=== PATIENT | female | born 1960 | race Caucasian/White ===

== ENCOUNTER 2019-07-09 07:28 | Day surgery (SDC) | payer BC ==
[~2019-07-09 07:28] MED LIST: ALBU90OI61 INH; ASCO500 PO; BIEST/PROGEST TP; BUPR150T2 PO; CALMAGZIN PO; CELE200 PO; CYAN1000I IM; DHEA PO; DIAZ10 PO; DIAZ2 PO; GABA300 PO; METH10 PO; METO25ER PO; MIRT15 PO; MULVITMIND PO; PROM25 PO; RANI150 PO; RISE35 PO; SERT100 PO; TEMA30 PO; VIT D
== END 2019-07-09 23:36 | disposition home or self-care (01) ==
LOC: MOI US 07:28
DX: N60.92 Unspecified benign mammary dysplasia of left breast (principal)
CPT/HCPCS: 19083; 77065; A4648

== ENCOUNTER 2019-07-23 07:23 | Day surgery (SDC) | payer BC ==
[2019-07-23 10:12] LABS: Percent Saturation 30.6 % (15.0-50.0)
[2019-07-23 10:23] LABS: Anion Gap 4 mmol/L (6-16); Blood Urea Nitrogen 5 mg/dL (8-24); CO2, Blood 27 mmol/L (21-32); Calcium, Blood 8.4 mg/dL (8.5-10.1); Chloride, Blood 106 mmol/L (98-108); Creatinine, Blood 0.56 mg/dL (0.40-1.00); Glomerular Filtration Rate >60 (60-); Glucose, Blood 93 mg/dL (70-99); Potassium, Blood 3.7 mmol/L (3.5-5.5); Sodium, Blood 137 mmol/L (136-145)
[2019-07-23 10:39] LABS: Hematocrit 42.9 % (33.0-51.0); Mean Corpuscular HGB 34.2 pg (26.0-34.0); Mean Corpuscular HGB Conc 34.7 g/dL (31.5-36.5); Mean Corpuscular Volume 98 fL (80-100); Mean Platelet Volume 11.3 fL (9.1-12.4); Platelet Count 156 K/mm3 (150-400); RDW Coefficient Variation 13.3 % (11.7-14.2); RDW Standard Deviation 48.6 fL (35.1-46.3); Red Blood Cell Count 4.36 M/mm3 (3.80-5.20); White Blood Cell Count 6.25 K/mm3 (4.00-11.30)
[2019-07-23 10:43] LABS: Hemoglobin 14.9 g/dL (11.5-16.0)
[2019-07-23 10:52] LABS: Alanine Aminotransfer (ALT/SGP 22 U/L (12-78); Albumin, Blood 2.4 g/dL (3.4-5.0); Albumin/Globulin Ratio 0.6 (0.8-1.8); Alk Phos 147 U/L (50-136); Anion Gap 4 mmol/L (6-16); Aspartate Aminotrans (AST/SGOT 22 U/L (12-37); Bilirubin, Total 0.5 mg/dL (0.1-1.0); Blood Urea Nitrogen 4 mg/dL (8-24); Bun/Creatinine Ratio 7.2 (12.0-20.0); CO2, Blood 26 mmol/L (21-32); Calcium, Blood 8.3 mg/dL (8.5-10.1); Chloride, Blood 106 mmol/L (98-108); Creatinine, Blood 0.56 mg/dL (0.40-1.00); Globulin, Blood 4.1 g/dL (2.2-4.0); Glomerular Filtration Rate >60 (60-); Glucose, Blood 92 mg/dL (70-99); Potassium, Blood 3.8 mmol/L (3.5-5.5); Sodium, Blood 136 mmol/L (136-145); Total Protein, Blood 6.5 g/dL (6.4-8.2)
[2019-07-23 11:01] LABS: BASOPHILS ABSOLUTE AUTO 0.06 K/mm3 (0.00-0.23); BASOPHILS PERCENT AUTO 1 % (0-2); EOSINOPHILS ABSOLUTE AUTO 0.12 K/mm3 (0.00-0.68); EOSINOPHILS PERCENT AUTO 2 % (0-6); Hematocrit 43.6 % (33.0-51.0); IMMATURE GRAN ABSOLUTE AUTO 0.02 K/mm3 (0.00-0.10); IMMATURE GRAN PERCENT AUTO 0 % (0-1); LYMPHOCYTES ABSOLUTE AUTO 2.27 K/mm3 (0.84-5.20); LYMPHOCYTES PERCENT AUTO 36 % (21-46); MONOCYTES ABSOLUTE AUTO 0.64 K/mm3 (0.16-1.47); MONOCYTES PERCENT AUTO 10 % (4-13); Mean Corpuscular HGB 33.6 pg (26.0-34.0); Mean Corpuscular HGB Conc 34.2 g/dL (31.5-36.5); Mean Corpuscular Volume 98 fL (80-100); Mean Platelet Volume 11.5 fL (9.1-12.4); NEUTROPHILS ABSOLUTE AUTO 3.28 K/mm3 (1.96-9.15); NEUTROPHILS PERCENT AUTO 51 % (41-73); Platelet Count 163 K/mm3 (150-400); RDW Coefficient Variation 13.2 % (11.7-14.2); Red Blood Cell Count 4.43 M/mm3 (3.80-5.20); White Blood Cell Count 6.39 K/mm3 (4.00-11.30)
[2019-07-23 11:02] LABS: Hemoglobin 14.9 g/dL (11.5-16.0)
[2019-07-26 22:08] LABS: 25-HYDROXY, VITAMIN D 42 ng/mL (.); 25-HYDROXY, VITAMIN D-2 <1.0 ng/mL (.); 25-HYDROXY, VITAMIN D-3 42 ng/mL (.)
[2019-07-27] MEDS ORDERED: METO25 PO (11:18)
[2019-07-27] MEDS ORDERED: BRINTELLIX20 MG PO (11:18)
[2019-07-27] MEDS ORDERED: DIAZ10 PO (11:21)
[2019-07-27] MEDS ORDERED: PROM25 PO (11:22)
[2019-07-27] MEDS ORDERED: QUET100 PO (11:22)
[2019-07-27] MEDS ORDERED: GABA300 PO (11:24)
[2019-07-27] MEDS ORDERED: ESTRADIOL2 MG PO (11:25)
[2019-07-27] MEDS ORDERED: LEVO-T88 MC1 PO (11:25)
[2019-07-27] MEDS ORDERED: VAGIFEM10 MCG VAG (11:25)
[2019-07-27] MEDS ORDERED: PANT40 PO (11:26)
[2019-07-27] MEDS ORDERED: L-METHYLFOLATE15 MG PO (11:26)
[2019-07-27] MEDS ORDERED: ZYRTEC10 M2 PO (11:27)
[2019-07-27] MEDS ORDERED: ESTRADIOL PO (11:27)
[2019-07-27] MEDS ORDERED: Vitamin D2000 UNIT PO (11:27)
[2019-07-27] MEDS ORDERED: VITAMIN B122500 MCG INJ (11:27)
[2019-07-27] MEDS ORDERED: FLUT1DIS5 INH (11:28)
== END 2019-07-23 23:22 | disposition home or self-care (01) ==
LOC: MOI US 07:23
PROVIDERS: Internal Medicine; Surgery
PROC: BH41ZZZ Ultrasonography of Left Breast (ICD-10-PCS; principal; 2019-07-23)
DX: N60.89 Other benign mammary dysplasias of unspecified breast (principal); Z79.899 Other long term (current) drug therapy
CPT/HCPCS: 19285; 36415; 77065; 80048; 80053; 82306; 82607; 82728; 82746; 83540; 83550; 84443; 85025; 85027

== ENCOUNTER 2019-12-03 07:01 | Day surgery (SDC) | payer BC ==
[~2019-12-03] VITALS: Ht 172.7 cm; Wt 86.4 kg
[~2019-12-03 07:01] MED LIST changes: +ASCO500; +BRINTELLIX20 MG PO; +ESTRADIOL PO; +ESTRADIOL2 MG PO; +FERSU300 PO; +FLUT1DIS5 INH; +L-METHYLFOLATE15 MG PO; +LEVO-T88 MC1 PO; +METO25 PO; +Neurontin600 MG PO; +PANT40 PO; +QUET100 PO; +QUET300 PO; +SYNTHROID88 MCG PO; +VAGIFEM10 MCG VAG; +VITAMIN B122500 MCG INJ; +VITAMIN D325 MC1 PO; +Vitamin D2000 UNIT PO; +ZYRTEC10 M2 PO
[2019-12-03] MEDS ORDERED: OMEP20ER PO (07:49)
--- NOTE | 2019-12-03 09:01 | NUR ---
12/03/19 0901 SHONDA WINTER WC TRANSPORTED TO RECOVERY AREA AND LABELED FOR PATIENT SAFETY.
--- NOTE | 2019-12-03 09:29 | NUR ---
12/03/19 0929 Luis Mejia AT RADIOLOGY, DR. BENITEZ CALLED TO VERIFIY SPECIMEN HAS ALEX PLACEMENT.
--- NOTE | 2019-12-03 10:04 | NUR ---
12/03/19 [email or web address] Lyudmila Guevara LATE ENTRY LES AT BEDSIDE TO ASSIST PT TO GET DRESSED AND TO TRANSFER TO CHAIR PER PT'S REQUEST.
== END 2019-12-03 10:21 | disposition home or self-care (01) ==
LOC: ORSCSDS 07:01
PROVIDERS: Surgery
PROC: 0HBU0ZX Excision of Left Breast, Open Approach, Diagnostic (ICD-10-PCS; principal; 2019-12-03 08:30)
DX: N60.82 Other benign mammary dysplasias of left breast (principal); F17.210 Nicotine dependence, cigarettes, uncomplicated; J45.909 Unspecified asthma, uncomplicated; E03.9 Hypothyroidism, unspecified; I10 Essential (primary) hypertension; Z79.899 Other long term (current) drug therapy
CPT/HCPCS: 76098; 88307; J0690; J1100; J1885; J2001; J2250; J2405; J2704; J3010; J7120

== ENCOUNTER → 2020-04-03 | Outpatient (CLI) | payer BC ==
[~2020-04-03] MED LIST changes: +OMEP20ER PO
[2020-04-06 22:07] LABS: ADENOVIRUS F 40/41 Not Detected (Not Detected); ASTROVIRUS Not Detected (Not Detected); C DIFFICILE TOXIN A/B Not Detected (Not Detected); CAMPYLOBACTER Not Detected (Not Detected); CRYPTOSPORIDIUM Not Detected (Not Detected); CYCLOSPORA CAYETANENSIS Not Detected (Not Detected); ENTAMOEBA HISTOLYTICA Not Detected (Not Detected); ENTEROAGGREGATIVE E COLI Not Detected (Not Detected); ENTEROPATHOGENIC E COLI Not Detected (Not Detected); ENTEROTOXIGENIC E COLI Not Detected (Not Detected); GIARDIA LAMBLIA Not Detected (Not Detected); NOROVIRUS GI/GII Not Detected (Not Detected); PLESIOMONAS SHIGELLOIDES Not Detected (Not Detected); ROTAVIRUS A Not Detected (Not Detected); SALMONELLA Not Detected (Not Detected); SAPOVIRUS Not Detected (Not Detected); SHIGA-TOXIN-PRODUCING E COLI Not Detected (Not Detected); SHIGELLA/ENTEROINVASIVE E COLI Not Detected (Not Detected); VIBRIO Not Detected (Not Detected); VIBRIO CHOLERAE Not Detected (Not Detected); YERSINIA ENTEROCOLITICA Not Detected (Not Detected)
== END ==
LOC: LAB 18:17 → LAB SHORT 18:17
PROVIDERS: Internal Medicine Gastroenterology
DX: R19.7 Diarrhea, unspecified (principal)
CPT/HCPCS: 0097U; 87205

== ENCOUNTER → 2020-04-04 | Outpatient (CLI) | payer BC | END | disposition home or self-care (01) | LOC: LAB 18:20 → LAB SHORT 18:20 | DX: R19.7 Diarrhea, unspecified (principal) | CPT/HCPCS: 82656; 87177; 87209 ==

== ENCOUNTER → 2020-04-10 | Outpatient (CLI) | payer BC | END | disposition home or self-care (01) | LOC: PLD 18:31 | PROVIDERS: Internal Medicine Gastroenterology | DX: R19.7 Diarrhea, unspecified (principal) | CPT/HCPCS: 82710 ==